=== PATIENT | female | born 1985 | race Two or more races ===

== ENCOUNTER 2019-06-02 19:05 | Emergency (ER) | payer MEDICAID ==
[~2019-06-02] VITALS: Ht 154.9 cm; Wt 49.9 kg
[2019-06-02 19:27] VITALS: BP 116/65
[2019-06-02 20:00] LABS: Basophils # (auto) 0.1 uL; Basophils % (auto) 0.3 % (0.0-2.0); Eosinophils # (auto) 0 uL; Hematocrit 38.1 % (36.0-46.0); Lymphocytes # (auto) 1.2 uL; Lymphocytes % (auto) 6.4 % (10.0-50.0); Mean Corpuscular Hemoglobin 31.2 pg (28.0-32.0); Mean Corpuscular Hgb Conc. 34.2 g/dL (32.0-36.0); Mean Corpuscular Volume 91.3 fL (80.0-100.0); Monocytes # (auto) 0.9 uL; Monocytes % (auto) 4.6 % (0.0-12.0); Neutrophils # (auto) 16.6 uL; Neutrophils % (auto) 88.7 % (37.0-80.0); Platelet Count (auto) 428 10^3/uL (140-450); Red Blood Cells 4.17 10^6/uL (4.0-5.20); Red Cell Distribution Width 13.3 % (11.8-14.3); White Blood Cell 18.7 10^3/uL (4.4-10.8)
[2019-06-02 20:04] LABS: Alanine Aminotransferase 17 U/L (13-56); Albumin 3.8 g/dL (3.4-5.0); Anion Gap 10 (5-15); Aspartate Aminotransferase 11 U/L (15-37); BUN/Creatinine Ratio 11.8; Blood Alcohol < 3.0 mg/dL (0-5); Blood Urea Nitrogen 10 mg/dL (7-18); Calcium 8.7 mg/dL (8.5-10.1); Carbon Dioxide 21 mmol/L (21-32); Chloride 109 mmol/L (98-107); GFR African American 100 mL/min; GFR Non-African American 82 mL/min; Glucose 122 mg/dL (74-106); Magnesium 1.8 mg/dL (1.6-2.6); Potassium 3.6 mmol/L (3.5-5.1); Sodium 140 mmol/L (136-145)
[2019-06-02 20:05] LABS: Alkaline Phosphatase 59 U/L (45-117); Bilirubin, Total 0.8 mg/dL (0.2-1.0); Total Protein 7.3 g/dL (6.4-8.2)
[2019-06-02 20:19] LABS: Urine Pregnacy Test Negative (Negative)
[2019-06-02 20:28] LABS: Alcohol, Urine < 3.0 mg/dL (0-5); Amphetamine Screen, Urine NEGATIVE (NEGATIVE); Barbiturate Scree,Urine NEGATIVE (NEGATIVE); Benzodiazephine Screen, Urine NEGATIVE (NEGATIVE); Cannabinoid Screen, Urine POSITIVE (NEGATIVE); Cocaine Screen, Urine NEGATIVE (NEGATIVE); Opiate Scree,Urine NEGATIVE (NEGATIVE); Urine Bacteria MANY /hpf (None Seen); Urine Blood Negative /uL (Negative); Urine Mucus FEW (None Seen); Urine Specific Gravity 1.022 (1.001-1.035); Urine WBC 23 /hpf (0 - 5)
[2019-06-02 20:37] LABS: Phencyclidine Screen, Urine NEGATIVE (NEGATIVE)
== END 2019-06-02 20:56 | disposition left against medical advice (07) ==
LOC: ER 19:05
DX: R11.10 Vomiting, unspecified (principal); Z53.21 Procedure and treatment not carried out due to patient leaving prior to being seen by health care provider
CPT/HCPCS: 36415; 80053; 80307; 80320; 81001; 81025; 83735; 85025

== ENCOUNTER 2019-06-03 02:20 | Emergency (ER) | payer MEDICAID ==
[~2019-06-03] VITALS: Ht 154.9 cm; Wt 49.9 kg
[2019-06-03 03:29] LABS: Basophils # (auto) 0 uL; Basophils % (auto) 0.3 % (0.0-2.0); Eosinophils # (auto) 0 uL; Hematocrit 38.1 % (36.0-46.0); Lymphocytes # (auto) 0.8 uL; Lymphocytes % (auto) 5.3 % (10.0-50.0); Mean Corpuscular Hemoglobin 31.1 pg (28.0-32.0); Mean Corpuscular Volume 91.5 fL (80.0-100.0); Monocytes # (auto) 0.4 uL; Monocytes % (auto) 2.8 % (0.0-12.0); Neutrophils # (auto) 13.1 uL; Neutrophils % (auto) 91.6 % (37.0-80.0); Platelet Count (auto) 377 10^3/uL (140-450); Red Blood Cells 4.17 10^6/uL (4.0-5.20); Red Cell Distribution Width 13.6 % (11.8-14.3); White Blood Cell 14.3 10^3/uL (4.4-10.8)
[2019-06-03] MEDS ORDERED: PROMETHAZINE HCL 25 MG/ML 1ML IV ONE (03:30)
[2019-06-03] MEDS ORDERED: SODIUM CHLORIDE 0.9% 2,000 ML IV ONE (03:30)
[2019-06-03 03:48] LABS: Albumin 3.9 g/dL (3.4-5.0); Anion Gap 11 (5-15); Blood Urea Nitrogen 12 mg/dL (7-18); Calcium 8.7 mg/dL (8.5-10.1); Carbon Dioxide 22 mmol/L (21-32); Chloride 106 mmol/L (98-107); Glucose 130 mg/dL (74-106); Magnesium 1.8 mg/dL (1.6-2.6); Sodium 139 mmol/L (136-145)
[2019-06-03 03:50] LABS: Alanine Aminotransferase 17 U/L (13-56); Aspartate Aminotransferase 10 U/L (15-37); BUN/Creatinine Ratio 13.6; GFR African American 96 mL/min; GFR Non-African American 79 mL/min
[2019-06-03 03:55] LABS: Alkaline Phosphatase 61 U/L (45-117); Bilirubin, Total 1.1 mg/dL (0.2-1.0); Total Protein 7.7 g/dL (6.4-8.2)
[2019-06-03] MEDS ORDERED: PROCHLORPERAZINE EDISYLATE 5 MG/ML 2ML VIAL IV ONE (08:15)
[2019-06-03] MEDS ORDERED: SODIUM CHLORIDE 0.9% 1,000 ML IVB ONE (08:37)
[2019-06-03 09:45] VITALS: BP 105/51
== END 2019-06-03 10:01 | disposition left against medical advice (07) ==
LOC: ER 02:20
DX: K52.9 Noninfective gastroenteritis and colitis, unspecified (principal); K90.49 Malabsorption due to intolerance, not elsewhere classified; F12.288 Cannabis dependence with other cannabis-induced disorder
CPT/HCPCS: 36415; 80053; 80320; 83735; 84484; 84702; 85025; 96361; 96374; 96375; 99283; J0780; J2550